=== PATIENT | female | born 1960 | race Caucasian/White ===

== ENCOUNTER 2016-08-19 18:57 | Emergency (ER) | payer BC ==
--- NOTE | 2016-08-19 19:20 | EDM.PDOC ---
ED HPI GENERAL MEDICAL PROBLEM - General Chief Complaint: Upper Extremity Injury/Pain Stated Complaint: LEFT WRIST PAIN FROM FALL Time Seen by Provider: 08/19/16 19:10 Source of Information: Reports: Patient History Limitations: Reports: No Limitations - History of Present Illness INITIAL COMMENTS - FREE TEXT/NARRATIVE: History of present illness: [55-year-old female presenting with acute onset of, 2 left wrist. Patient was intoxicated at the bar where she had an unwitnessed fall. Patient indicates to the best of her knowledge she lost her balance and landed on her outstretched hand and has subsequent pain in that wrist the] Review of systems: As per history of present illness and below otherwise all systems reviewed and negative. Past medical history: As per history of present illness and as reviewed below otherwise noncontributory. Surgical history: As per history of present illness and as reviewed below otherwise noncontributory. Social history: No reported history of drug or alcohol abuse. Family history: As per history of present illness and as reviewed below otherwise noncontributory. Physical exam: HEENT: Atraumatic, normocephalic, pupils reactive, negative for conjunctival pallor or scleral icterus, mucous membranes moist, throat clear, neck supple, nontender, trachea midline. Lungs: Clear to auscultation, breath sounds equal bilaterally, chest nontender. Heart: S1S2, regular, negative for clicks, rubs, or JVD. Abdomen: Soft, nondistended, nontender. Negative for masses or hepatosplenomegaly. Negative for costovertebral tenderness. Pelvis: Stable nontender. Genitourinary: Deferred. Rectal: Deferred. Extremities: Mild swelling and minimal deformity to left wrist at the end of the forearm. negative for cords or calf pain. Neurovascular unremarkable. Neuro: Awake, alert, oriented. Cranial nerves II through XII unremarkable. Cerebellum unremarkable. Motor and sensory unremarkable throughout. Exam nonfocal. Diagnostics: [X-ray of the left wrist] Therapeutics: [] Impression: [Distal radius and ulnar fracture] Plan: [Splint, sling, pain medicine, or the referral] Definitive disposition and diagnosis as appropriate pending reevaluation and review of above. Left Wrist Pain Score (Numeric/FACES): 8 - Related Data Allergies Allergy/AdvReac Type Severity Reaction Status Date / Time amoxicillin Allergy Hives Verified 07/29/14 09:21 Sulfa (Sulfonamide Allergy Hives Verified 07/29/14 09:21 Antibiotics) Home Meds: Home Meds Citalopram [Citalopram HBr] 40 mg PO DAILY 07/29/14 [History] Folic Acid/Vitamin B Comp W-C [Folbee Plus] 1 tab PO DAILY 07/29/14 [History] Furosemide 20 mg PO DAILY 07/29/14 [History] Levothyroxine 125 mg PO DAILY 07/29/14 [History] Vilazodone [Viibryd] 40 mg PO DAILY 07/29/14 [History] Social & Family History - Tobacco Use Smoking Status *Q: Never Smoker - Alcohol Use Days Per Week of Alcohol Use: 1 Number of Drinks Per Day: 4 Total Drinks Per Week: 4 - Recreational Drug Use Recreational Drug Use: No Drug Use in Last 12 Months: No Review of Systems - Review of Systems Review Of Systems: See Below (The history of present illness) Trauma Exam - Physical Exam Exam: See Below (History of present illness) Course - Vital Signs Last Recorded V/S: Last Vital Signs Temp 36.4 C 08/19/16 19:04 Pulse 81 08/19/16 19:04 Resp 14 08/19/16 19:04 BP 139/83 08/19/16 19:04 Pulse Ox 96 08/19/16 19:04 - Orders/Labs/Meds Orders: Active Orders 24 hr Category Date Time Status Wrist 2V Lt [CR] Stat Exams 08/19/16 19:20 Ordered Departure - Departure Time of Disposition: 20:24 Disposition: Home, Self-Care 01 Condition: good Clinical Impression: Closed fracture of radius and ulna - Discharge Information Instructions: How to Use a Sling, [id number], Cast or Splint Care, Easy-to- Read Forms: ED Department Discharge Additional Instructions: The following information is given to patients seen in the emergency department who are being discharged to home. This information is to outline your options for follow-up care. We provide all patients seen in our emergency department with a follow-up referral. The need for follow-up, as well as the timing and circumstances, are variable depending upon the specifics of your emergency department visit. If you don't have a primary care physician on staff, we will provide you with a referral. We always advise you to contact your personal physician following an emergency department visit to inform them of the circumstance of the visit and for follow-up with them and/or the need for any referrals to a consulting specialist. The emergency department will also refer you to a specialist when appropriate. This referral assures that you have the opportunity for follow-up care with a specialist. All of these measure are taken in an effort to provide you with optimal care, which includes your follow-up. Under all circumstances we always encourage you to contact your private physician who remains a resource for coordinating your care. When calling for follow-up care, please make the office aware that this follow-up is from your recent emergency room visit. If for any reason you are refused follow-up, please contact the [facility] Emergency Department at and asked to speak to the emergency department charge nurse. Take medicine as directed Follow up with primary care provider one to 2 days Call orthopedics in the morning for followup appointment Keep sling on at all times except while in bed [facility] - [facility] [address], [address] [place] [address] - My Orders Last 24 Hours: My Active Orders 08/19/16 19:20 Wrist 2V Lt [CR] Stat - Assessment/Plan Last 24 Hours: My Active Orders 08/19/16 19:20 Wrist 2V Lt [CR] Stat
[2016-08-19 21:12] VITALS: BP 145/81
--- NOTE | 2016-08-20 16:53 | CR ---
MEXAM DATE: 08/19/16 PATIENT'S AGE: 55 Patient: NADIR LOMBARDI Facility: [place], [place] Site . Site : [id number] Study: XRay Extremity Left [id number] 7:37:08 PM Ordering Physician: Doctor Coffman Final Report: INDICATION: Fall/injury. Technique: 2 views left wrist Findings : Acute comminuted mildly displaced impacted fracture involving the distal left radius with overlying mild to moderate soft tissue swelling distal forearm extending caudally along the dorsal aspect of the wrist and proximal hand. No other acute fracture or dislocation in left wrist. Mild ulna positive deformity related to the impacted radial fracture. 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 Remainder negative. Dictated by Satinder Briseno MD @ Aug 19 2016 8:17PM (Electronic Signature) Report Signed by Proxy. ERNESTINE
== END 2016-08-19 20:50 | disposition home or self-care (01) ==
LOC: MW.ED 18:57
DX: S52.502A Unspecified fracture of the lower end of left radius, initial encounter for closed fracture (principal); S52.602A Unspecified fracture of lower end of left ulna, initial encounter for closed fracture; Z88.1 Allergy status to other antibiotic agents; Z88.2 Allergy status to sulfonamides; Z79.899 Other long term (current) drug therapy; W18.39XA Other fall on same level, initial encounter; Y92.89 Other specified places as the place of occurrence of the external cause
CPT/HCPCS: 73100-26-LT; 73100-LT; 99283

== ENCOUNTER → 2016-08-21 | Outpatient (CLI) | payer BC ==
--- NOTE | 2016-08-21 16:02 | CR ---
EXAMINATION: Right and left wrists HISTORY: Pain COMPARISON: None TECHNIQUE: Single view bilaterally FINDINGS: There is likely a nondisplaced fracture through the distal left radius, unchanged. There i s also mild left negative ulnar variance. Degenerative changes are noted at the first CMC joint bila terally. Bone mineralization appears normal. IMPRESSION: 1. Nondisplaced distal left radius fracture. 2. First CMC arthritis bilaterally.
== END ==
LOC: MW.CHORTHO 11:27
PROVIDERS: ATTEND Physician Assistant
DX: M25.531 Pain in right wrist (principal); M25.532 Pain in left wrist; S52.502A Unspecified fracture of the lower end of left radius, initial encounter for closed fracture; M18.0 Bilateral primary osteoarthritis of first carpometacarpal joints
CPT/HCPCS: 73100-26-LT; 73100-26-RT; 73100-LT; 73100-RT

== ENCOUNTER 2017-01-31 07:31 | Emergency (ER) | payer BC ==
--- NOTE | 2017-01-31 07:54 | EDM.PDOC ---
ED HPI GENERAL MEDICAL PROBLEM - General Chief Complaint: Lower Extremity Injury/Pain Stated Complaint: HURT RIGHT KNEE Time Seen by Provider: 01/31/17 07:52 Source of Information: Reports: Patient - History of Present Illness INITIAL COMMENTS - FREE TEXT/NARRATIVE: HISTORY AND PHYSICAL: History of present illness: []Patient presents with pain behind her right knee 6 out of 10 with weightbearing 3 out of 10 at rest, she states that the pain/discomfort began after stepping on a curve she heard an audible pop now unable to bear weight due to pain. Generally sedentary lifestyle working at [employer] No other symptoms no fever nausea vomiting diarrhea constipation chest pain shortness breath headache dizziness dictation about a urine symptoms Review of systems: As per history of present illness and below otherwise all systems reviewed and negative. Past medical history: As per history of present illness and as reviewed below otherwise noncontributory. Surgical history: As per history of present illness and as reviewed below otherwise noncontributory. Social history: No reported history of drug or alcohol abuse. Family history: As per history of present illness and as reviewed below otherwise noncontributory. Physical exam: HEENT: Atraumatic, normocephalic, pupils reactive, negative for conjunctival pallor or scleral icterus, mucous membranes moist, throat clear, neck supple, nontender, trachea midline. Lungs: Clear to auscultation, breath sounds equal bilaterally, chest nontender. Heart: S1S2, regular, negative for clicks, rubs, or JVD. Abdomen: Soft, nondistended, nontender. Negative for masses or hepatosplenomegaly. Negative for costovertebral tenderness. Pelvis: Stable nontender. Genitourinary: Deferred. Rectal: Deferred. Extremities: Atraumatic, negative for cords or calf pain. Neurovascular unremarkable. Tender in right popliteal fossa otherwise unremarkable Right knee hip and ankle and affected no ballooning of the patella no swelling redness warmth or open lesion no bruising tendons and ligamentous structures appear intact entirely neurovascularly intact Neuro: Awake, alert, oriented. Cranial nerves II through XII unremarkable. Cerebellum unremarkable. Motor and sensory unremarkable throughout. Exam nonfocal. Diagnostics: []Ultrasound rule out DVT right lower extremity Therapeutics: []Benjie wrap Crutches Rest ice ibuprofen Impression: [Right knee pain Definitive disposition and diagnosis as appropriate pending reevaluation and review of above. Right Knee Pain Score (Numeric/FACES): 9 - Related Data Allergies Allergy/AdvReac Type Severity Reaction Status Date / Time amoxicillin Allergy Hives Verified 07/29/14 09:21 Sulfa (Sulfonamide Allergy Hives Verified 07/29/14 09:21 Antibiotics) Home Meds: Home Meds Citalopram [Citalopram HBr] 40 mg PO DAILY 07/29/14 [History] Folic Acid/Vitamin B Comp W-C [Folbee Plus] 1 tab PO DAILY 07/29/14 [History] Furosemide 20 mg PO DAILY 07/29/14 [History] Levothyroxine 125 mg PO DAILY 07/29/14 [History] Vilazodone [Viibryd] 40 mg PO DAILY 07/29/14 [History] Past Medical History Psychiatric History: Reports: Depression Endocrine/Metabolic History: Reports: Obesity/BMI 30+ - Past Surgical History GI Surgical History: Reports: Bariatric Procedure Social & Family History - Family History Family Medical History: Noncontributory - Tobacco Use Smoking Status *Q: Never Smoker Second Hand Smoke Exposure: No - Alcohol Use Days Per Week of Alcohol Use: 1 Number of Drinks Per Day: 4 Total Drinks Per Week: 4 - Recreational Drug Use Recreational Drug Use: No Drug Use in Last 12 Months: No Review of Systems - Review of Systems Review Of Systems: ROS reveals no pertinent complaints other than HPI. ED EXAM, GENERAL - Physical Exam Exam: See Below Course - Vital Signs Last Recorded V/S: Last Vital Signs Temp 36.2 C 01/31/17 07:54 Pulse 77 01/31/17 07:54 Resp 18 01/31/17 07:54 BP 154/90 H 01/31/17 07:54 Pulse Ox 97 01/31/17 07:54 Departure - Departure Time of Disposition: 09:23 Disposition: Home, Self-Care 01 Condition: Good Clinical Impression: Knee pain - Discharge Information Referrals: Aurelio Bonilla MD [Primary Care Provider] - Forms: ED Department Discharge Additional Instructions: Benjie wrap Crutches to fit Nonweightbearing Rest Ice 20 minute intervals 3 times daily as needed Ibuprofen 400 mg 3 times daily 7-10 days Follow-up with orthopedist, call number below for appropriate follow-up appointment [facility] - [facility] Professional [address], [address] [place] [id number] my orthopedic The following information is given to patients seen in the emergency department who are being discharged to home. This information is to outline your options for follow-up care. We provide all patients seen in our emergency department with a follow-up referral. The need for follow-up, as well as the timing and circumstances, are variable depending upon the specifics of your emergency department visit. If you don't have a primary care physician on staff, we will provide you with a referral. We always advise you to contact your personal physician following an emergency department visit to inform them of the circumstance of the visit and for follow-up with them and/or the need for any referrals to a consulting specialist. The emergency department will also refer you to a specialist when appropriate. This referral assures that you have the opportunity for follow-up care with a specialist. All of these measure are taken in an effort to provide you with optimal care, which includes your follow-up. Under all circumstances we always encourage you to contact your private physician who remains a resource for coordinating your care. When calling for follow-up care, please make the office aware that this follow-up is from your recent emergency room visit. If for any reason you are refused follow-up, please contact the [facility] emergency department at and asked to speak to the emergency department charge nurse.
--- NOTE | 2017-01-31 09:00 | US ---
ULTRASOUND EXAMINATION OF the right lower extremity WITH DOPPLER HISTORY: Pain FINDINGS: Examination of the right leg was performed from the groin to the calf region. All visualized segment s including common femoral, proximal greater saphenous, superficial femoral, popliteal and calf veins appear patent with good compressibility and augmentation. There is no evidence of deep vein thrombo sis. IMPRESSION: No evidence of a DVT.
--- NOTE | 2017-01-31 09:05 | CR ---
EXAMINATION: Right knee HISTORY: Pain COMPARISON: None TECHNIQUE: 3 views FINDINGS: There is no acute osseous abnormality, dislocation, or fracture. There is severe joint spac e narrowing within the patellofemoral compartment. Osteophytes are noted within the medial and latera l compartments. No significant joint effusion or soft tissue swelling. IMPRESSION: 1. Severe joint space narrowing and osteoarthritic changes within the patellofemoral compartment with out acute finding.
[2017-01-31 09:42] VITALS: BP 166/115
== END 2017-01-31 09:47 | disposition home or self-care (01) ==
LOC: MW.ED 07:31
DX: M25.561 Pain in right knee (principal); Z88.1 Allergy status to other antibiotic agents; Z88.2 Allergy status to sulfonamides; Z79.899 Other long term (current) drug therapy
CPT/HCPCS: 73562-26-RT; 73562-RT; 93971-26-RT; 93971-RT; 99282; 99284-25

== ENCOUNTER 2019-09-02 08:00 | Emergency (ER) | payer BC ==
--- NOTE | 2019-09-02 08:35 | EDM.PDOC ---
ED [facility] GENERAL MEDICAL PROBLEM - General Chief Complaint: Lower Extremity Injury/Pain Stated Complaint: PAIN IN LT KNEE Time Seen by Provider: 09/02/19 08:03 - History of Present Illness INITIAL COMMENTS - FREE TEXT/NARRATIVE: HISTORY AND PHYSICAL: History of present illness: This 58-year-old female with a past medical history of BMI greater than 55, arthritis in the right knee, and regular alcohol use presents to the emergency department complaining of left knee pain. Last night she had a stumble and fall but feels that she fell gracefully to the ground as she did not spill her drink. This morning she continues to have left knee pain. She does not remember any particular twisting motion or other abnormality. At her last night so she woke up and took a hydrocodone pill which she had leftover from previous prescription and it felt better and she went back to sleep. This morning it was hurting when she ambulated but was able to walk so she came to the emergency department for evaluation. No paresthesias. Normal strength. Denies any other associated signs or symptoms. No other modifying, aggravating or alleviating factors. Review of systems: A 10-point review of systems, other than pertinent positives and negatives as stated per HPI, is otherwise negative. Past medical history: As per history of present illness and as reviewed below otherwise noncontributory. Surgical history: As per history of present illness and as reviewed below otherwise noncontributory. Social history: No reported history of drug or alcohol abuse. Family history: As per history of present illness and as reviewed below otherwise noncontributory. Physical exam: VITAL SIGNS: Reviewed. GENERAL: Appears to be in no acute distress but does appear to have acute pain. HEAD: No signs of head trauma. EYES: Pupils are equal. Extraocular motions intact. EARS: Hearing grossly intact. MOUTH: Oropharynx is normal. NECK: No adenopathy, no JVD. CHEST: Chest with clear breath sounds bilaterally. No wheezes, rales, or rhonchi. CARDIAC: Regular rate and rhythm. Normal S1 and S2, without murmurs, gallops, or rubs. VASCULAR: Peripheral pulses normal and equal in all extremities. ABDOMEN: Soft, without detectable tenderness. No sign of distention. No rebound or guarding, and no masses palpated. MUSCULOSKELETAL: The left knee is stable in all 4 planes. No ligamentous laxity noted. Distal neurovascular function is intact. There is a suggestion of a palpable left knee effusion. There is no erythema or signs of infection. No significant difference from the right knee. NEUROLOGIC EXAM: Alert and oriented x 3. No focal sensory or motor deficits. Speech normal. Follows commands. PSYCHIATRIC: Mood normal. SKIN: No rash or lesions. Initial Differential Diagnosis & Plan: Differential diagnosis includes fracture, dislocation, strain, contusion, tendon or ligamentous injury, compartment syndrome, neurovascular injury, muscle rupture. It appears the patient has a medial collateral ligament strain she has pain in the area. There is no significant ligamentous laxity. There is no evidence of septic arthritis, cellulitis or other infection. There is no evidence of compartment syndrome as the compartments are soft. The patient has full use and range of motion of the knee and I doubt any significant muscle rupture. Distal neurovascular function is intact. My diagnostic impression: 1. Left medial collateral ligament strain 2. Left knee effusion Discussed strapping. Patient states that this usually does not work for her given the size and body habitus. We have foregone strapping. Recommended rice , topical diclofenac, and oral Robaxin. We will add Tylenol to her pain regiment. I do not feel narcotics are indicated for this. She should have a follow-up MRI if this does not improve. Left Knee Pain Score (Numeric/FACES): 10 - Related Data Allergies Allergy/AdvReac Type Severity Reaction Status Date / Time amoxicillin Allergy Hives Verified 09/02/19 08:16 Sulfa (Sulfonamide Allergy Hives Verified 09/02/19 08:16 Antibiotics) Home Meds: Home Meds Citalopram [Citalopram HBr] 40 mg PO DAILY 07/29/14 [History] Levothyroxine 125 mg PO DAILY 07/29/14 [History] Vilazodone [Viibryd] 40 mg PO DAILY 07/29/14 [History] Acetaminophen [Tylenol Extra Strength] 1,000 mg PO Q6HR PRN #60 tablet 09/02/19 [Rx] Diclofenac Sodium 100 gm TP TID 14 Days #100 gel..gram. 09/02/19 [Rx] Furosemide [Lasix] 40 mg PO DAILY 09/02/19 [History] methocarbamoL [Methocarbamol] 750 mg PO QID 14 Days #60 tablet 09/02/19 [Rx] Past Medical History Cardiovascular History: Reports: Other (See Below) Other Cardiovascular History: Peripheral Edema Respiratory History: Reports: None Genitourinary History: Reports: None PLAY READER History: Reports: None Musculoskeletal History: Reports: None Neurological History: Reports: None Psychiatric History: Reports: Anxiety, Depression Endocrine/Metabolic History: Reports: None, Hypothyroidism, Obesity/BMI 30+ Hematologic History: Reports: None Immunologic History: Reports: None Oncologic (Cancer) History: Reports: None Dermatologic History: Reports: None - Infectious Disease History Infectious Disease History: Reports: Chicken Pox, Mumps - Past Surgical History Head Surgeries/Procedures: Reports: None GI Surgical History: Reports: Bariatric Procedure, Cholecystectomy Social & Family History - Family History Family Medical History: Noncontributory - Tobacco Use Smoking Status *Q: Never Smoker Second Hand Smoke Exposure: No - Caffeine Use Caffeine Use: Reports: Tea - Alcohol Use Days Per Week of Alcohol Use: 7 Number of Drinks Per Day: 5 Total Drinks Per Week: 35 - Recreational Drug Use Recreational Drug Use: No Review of Systems - Review of Systems Review Of Systems: Unable To Obtain (noted) Reason Not Obtained: noted ED EXAM, GENERAL - Physical Exam Exam: Not Obtained (noted) Course - Vital Signs Last Recorded V/S: Last Vital Signs Temp 96.8 F L 09/02/19 08:19 Pulse 88 09/02/19 08:19 Resp 16 09/02/19 08:19 BP 153/94 H 09/02/19 08:19 Pulse Ox 95 09/02/19 08:19 Departure - Departure Time of Disposition: 08:28 Disposition: Home, Self-Care 01 Condition: Good Clinical Impression: Medial collateral ligament sprain of knee, Knee effusion, left - Discharge Information *PRESCRIPTION DRUG MONITORING PROGRAM REVIEWED*: Not Applicable *COPY OF PRESCRIPTION DRUG MONITORING REPORT IN PATIENT OLE: Not Applicable Prescriptions: Acetaminophen [Tylenol Extra Strength] 1,000 mg PO Q6HR PRN #60 tablet PRN Reason: Pain Diclofenac Sodium 100 gm TP TID 14 Days #100 gel..gram. methocarbamoL [Methocarbamol] 750 mg PO QID 14 Days #60 tablet Instructions: Medial Collateral Knee Ligament Sprain With Phase II Rehab- SportsMed, Knee Effusion, [id number], How to Use Cold Therapy, [id number], Knee Sprain, Adult, [id number], Medial Collateral Knee Ligament Sprain, Phase I Rehab-SportsMed Referrals: Aurelio Bonilla MD [Primary Care Provider] - Forms: ED Department Discharge Additional Instructions: The following information is given to patients seen in the emergency department who are being discharged to home. This information is to outline your options for follow-up care. We provide all patients seen in our emergency department with a follow-up referral. The need for follow-up, as well as the timing and circumstances, are variable depending upon the specifics of your emergency department visit. If you don't have a primary care physician on staff, we will provide you with a referral. We always advise you to contact your personal physician following an emergency department visit to inform them of the circumstance of the visit and for follow-up with them and/or the need for any referrals to a consulting specialist. The emergency department will also refer you to a specialist when appropriate. This referral assures that you have the opportunity for follow-up care with a specialist. All of these measure are taken in an effort to provide you with optimal care, which includes your follow-up. Under all circumstances we always encourage you to contact your private physician who remains a resource for coordinating your care. When calling for follow-up care, please make the office aware that this follow-up is from your recent emergency room visit. If for any reason you are refused follow-up, please contact the [facility] Emergency Department at and asked to speak to the emergency department charge nurse. Thank you for coming to the [facility] emergency department. It was Dr. Parker's pleasure to take care of you today. You have suffered a medial collateral ligament sprain or tear. Your ligaments in your knee feels stable on exam. You have a small palpable joint effusion. The blood flow in your lower extremity is normal on clinical exam. X-rays are not indicated for this condition. If you do not feel better in 2 to 3 weeks please follow-up with your doctor for an MRI. We will prescribe you a nonsteroidal anti-inflammatory cream for your knee, a nonaddictive muscle relaxant called Robaxin ( methocarbamol) that you can take to help with your symptoms. You have indicated that you take diclofenac at home for your pain. Please continue this medication. You may add Tylenol to your pain treatment as this sometimes will help. Sepsis Event Note - Evaluation Sepsis Screening Result: No Definite Risk - Focused Exam Vital Signs: Vital Signs Temp Pulse Resp BP Pulse Ox 09/02/19 08:19 96.8 F L 88 16 153/94 H 95 Date Exam was Performed: 09/02/19 Time Exam was Performed: 08:35
[2019-09-02 08:47] VITALS: BP 146/88; PULSE 76
== END 2019-09-02 08:49 | disposition home or self-care (01) ==
LOC: MW.ED 08:00
DX: S83.412A Sprain of medial collateral ligament of left knee, initial encounter (principal); F32.9 Major depressive disorder, single episode, unspecified; F41.9 Anxiety disorder, unspecified; E03.9 Hypothyroidism, unspecified; E66.9 Obesity, unspecified; Z68.43 Body mass index [BMI] 50.0-59.9, adult; Z88.1 Allergy status to other antibiotic agents; Z88.2 Allergy status to sulfonamides; Z79.899 Other long term (current) drug therapy; W01.0XXA Fall on same level from slipping, tripping and stumbling without subsequent striking against object, initial encounter
CPT/HCPCS: 99282; 99283

== ENCOUNTER 2023-01-01 08:07 | Emergency (ER) | payer BC ==
[2023-01-01] MEDS ORDERED: Acetaminophen/HYDROcodone 325-5 MG Tab PO ONE (08:30)
[2023-01-01 10:14] VITALS: BP 188/86; PULSE 91
== END 2023-01-01 10:11 | disposition home or self-care (01) ==
LOC: MERGE 08:07 → MW.ED 08:07
DX: M17.11 Unilateral primary osteoarthritis, right knee (principal); Z88.0 Allergy status to penicillin; Z88.2 Allergy status to sulfonamides
CPT/HCPCS: 73562; 99283; A9270

== ENCOUNTER 2024-02-12 16:38 | Emergency (ER) | payer BC ==
[2024-02-12 17:18] VITALS: PULSE 88
[2024-02-12 19:53] LABS: BASOPHILS ABSOLUTE AUTO 0.04 K/uL (0.00-0.20); BASOPHILS PERCENT AUTO 0.6 % (0.0-1.0); EOSINOPHILS ABSOLUTE AUTO 0.16 K/uL (0.00-0.45); EOSINOPHILS PERCENT AUTO 2.4 % (0.0-6.0); HEMATOCRIT 39.4 % (37.0-47.0); HEMOGLOBIN 12.9 g/dL (12.0-16.0); IMMATURE GRAN ABSOLUTE AUTO 0.02 K/uL (0.00-0.05); IMMATURE GRAN PERCENT AUTO 0.3 % (0.0-0.4); LYMPHOCYTES ABSOLUTE AUTO 1.48 K/uL (1.00-4.80); LYMPHOCYTES PERCENT AUTO 22.2 % (24.0-44.0); MEAN CORPUSCULAR HEMOGLOBIN 31.4 pg (28.0-32.0); MEAN CORPUSCULAR HGB CONC 32.7 g/dL (32.0-36.0); MEAN CORPUSCULAR VOLUME 95.9 fL (83.0-99.0); MEAN PLATELET VOLUME 9.3 fL (9.4-12.3); MONOCYTES ABSOLUTE AUTO 0.59 K/uL (0.00-0.80); MONOCYTES PERCENT AUTO 8.8 % (0.0-8.0); NEUTROPHILS ABSOLUTE AUTO 4.39 K/uL (1.80-7.70); NEUTROPHILS PERCENT AUTO 65.7 % (41.0-71.0); PLATELET COUNT,PLT 302 K/uL (150-400); RED BLOOD CELL COUNT 4.11 M/uL (4.10-5.30); WHITE BLOOD CELL COUNT,WBC 6.68 K/uL (3.9-11.3)
[2024-02-12 20:16] LABS: A/G RATIO 0.9 (0.9-1.6); ALBUMIN 3.3 g/dL (3.4-5.0); BILIRUBIN TOTAL 0.4 mg/dL (0.2-1.0); C-REACTIVE PROTEIN 0.4 mg/dL (<0.3); CALCIUM 8.7 mg/dL (8.5-10.1); CARBON DIOXIDE,CO2 30.4 mmol/L (21.0-32.0); CREATININE 1.2 mg/dL (0.6-1.0); EST CRCL DRUG DOSING (CG) 43.18 mL/min; POTASSIUM,K 3.6 mmol/L (3.5-5.1)
[2024-02-12] MEDS: Cefuroxime 250 MG Tab PO ONE (21:27)
[2024-02-12 21:39] VITALS: BP 186/94
== END 2024-02-12 21:35 | disposition home or self-care (01) ==
LOC: MW.ED 16:38
DX: L03.115 Cellulitis of right lower limb (principal); I10 Essential (primary) hypertension; E03.9 Hypothyroidism, unspecified; E66.9 Obesity, unspecified; Z68.43 Body mass index [BMI] 50.0-59.9, adult; Z90.49 Acquired absence of other specified parts of digestive tract; Z79.899 Other long term (current) drug therapy; Z88.0 Allergy status to penicillin; Z88.2 Allergy status to sulfonamides
CPT/HCPCS: 36415; 80053; 85025; 85652; 86140; 93971; 99284; A9270